=== PATIENT | male | born 1940 | race Caucasian/White ===

== ENCOUNTER → 2024-11-06 09:43 | Outpatient (REF) | payer OTHER, SELFPAY | LOC: HWRAD 09:43 | PROVIDERS: ATTENDING PHYSICIAN Urology; FAMILY PHYSICIAN Family Medicine | DX: N20.0 Calculus of kidney (principal) | CPT/HCPCS: 74176 ==

== ENCOUNTER 2025-03-17 14:21 | Emergency (ER) | payer OTHER, SELFPAY ==
[2025-03-17 14:24] VITALS: BP 146/55
--- NOTE | 2025-03-17 14:34 | EDRN ---
Triage: saline gauze dressing L hand; ROCKY wrap and Ice L knee. Informed of delays. To WR.
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
[2025-03-17] MEDS: TYLENOL 1000 MG PO (17:29)
[2025-03-17] MEDS: CLEOCIN 150 MG PO (18:09)
[2025-03-17] MEDS: ADACEL 0.5 ML IM (18:19)
== END 2025-03-17 18:35 | disposition home or self-care (01) ==
LOC: EMR 14:21
PROVIDERS: EMERGENCY PHYSICIAN Emergency Medicine; FAMILY PHYSICIAN Family Medicine
DX: S61.412A Laceration without foreign body of left hand, initial encounter (principal); W19.XXXA Unspecified fall, initial encounter; I10 Essential (primary) hypertension; E11.9 Type 2 diabetes mellitus without complications; E78.00 Pure hypercholesterolemia, unspecified; I48.91 Unspecified atrial fibrillation; N40.0 Benign prostatic hyperplasia without lower urinary tract symptoms; Y92.480 Sidewalk as the place of occurrence of the external cause; Z86.73 Personal history of transient ischemic attack (TIA), and cerebral infarction without residual deficits
CPT/HCPCS: 99284; 12001; 90471; 73130; 73552; 73564; 90715; 93005; 93971